=== PATIENT | female | born 1975 | race Caucasian/White ===

== ENCOUNTER 2017-03-30 14:59 | Emergency (ER) | payer OTHER ==
[2017-03-30 15:16] VITALS: RESP 18; TEMP 98
[2017-03-30] MEDS ORDERED: HYDROmorphone 1 MG/ML 1 ML SYRINGE IM STA (15:37)
--- NOTE | 2017-03-30 16:00 | ED ---
Lower Extremity Injury HPI - General Chief Complaint: Extremity Injury, Lower Stated Complaint: [facility]. 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 Patient reports that she has previously rolled her ankle in . Patient states that she's noticed significant swelling. Patient reports that she can move her toes. Patient reports that she has some numbness or tingling going down her toes. She states that she was able to bear weight over for a few minutes afterwards and did drive back to her work station. Patient reports that her boss then drove her for the to the emergency department. - Related Data Home Medications Medication Instructions Recorded Confirmed ALPRAZolam [Xanax] 0.5 mg PO DAILY PRN 03/30/17 03/30/17 DULoxetine HCL [Cymbalta] 30 mg PO DAILY 03/30/17 03/30/17 DULoxetine HCL [Cymbalta] 60 mg PO DAILY 03/30/17 03/30/17 Dextroamphetamine/Amphetamine 30 mg PO BID 03/30/17 03/30/17 [Adderall] Previous Rx's Medication Instructions Recorded Ibuprofen [Motrin] 800 mg PO BID #20 tab 03/30/17 Allergies Allergy/AdvReac Type Severity Reaction Status Date / Time meperidine [From Demerol] Allergy Rash/Hives Verified 03/30/17 16:09 silver sulfadiazine Allergy Rash/Hives Verified 03/30/17 16:09 [From Silvadene] Review of Systems ROS Statement: Those systems with pertinent positive or pertinent negative responses have been documented in the HPI. ROS Other: All systems not noted in ROS Statement are negative. Past Medical History Past Medical History: No Reported History History of Any Multi-Drug Resistant Organisms: None Reported Past Surgical History: Breast Surgery, Section, Hysterectomy Additional Past Surgical History / Comment(s): bunionectomys breast augmentation Past Psychological History: Depression Smoking Status: Never smoker Past Alcohol Use History: None Reported Past Drug Use History: None Reported General Exam - General Exam Comments Initial Comments: 41-year-old female, patient appears to be in significant discomfort. Limitations: no limitations General appearance: alert, in no apparent distress Head exam: Present: atraumatic, normocephalic, normal inspection Eye exam: Present: normal appearance, PERRL, EOMI. Absent: scleral icterus, conjunctival injection, periorbital swelling ENT exam: Present: normal exam, mucous membranes moist Neck exam: Present: normal inspection. Absent: tenderness, meningismus, lymphadenopathy Respiratory exam: Present: normal lung sounds bilaterally. Absent: respiratory distress, wheezes, rales, rhonchi, stridor Cardiovascular Exam: Present: regular rate, normal rhythm, normal heart sounds. Absent: systolic murmur, diastolic murmur, rubs, gallop, clicks GI/Abdominal exam: Present: soft, normal bowel sounds. Absent: distended, tenderness, guarding, rebound, rigid Extremities exam: Present: normal inspection, full ROM, normal capillary refill. Absent: tenderness, pedal edema, joint swelling, calf tenderness Right Lower Leg exam: Present: normal inspection, full ROM Ankle exam: Present: tenderness, ecchymosis. Absent: normal inspection, full ROM, abrasion, laceration, deformity, crepitus, dislocation Foot/Toe exam: Present: full ROM. Absent: normal inspection, tenderness, swelling, laceration, ecchymosis Neurovascular tendon exam: Present: no vascular compromise Gait: observed and limited by pain. negative: observed and normal Back exam: Present: normal inspection Neurological exam: Present: alert Psychiatric exam: Present: normal affect, normal mood Skin exam: Present: warm, dry, intact, normal color. Absent: rash Course Vital Signs 03/30/17 03/30/17 15:13 16:30 Temperature 98.0 F Pulse Rate 102 H 80 Respiratory 18 18 Rate Blood Pressure 144/90 141/89 O2 Sat by Pulse 98 98 Oximetry Procedures - Orthopedic Splinting/Casting Injury #1 Side: right Lower Extremity Injury Location: ankle Lower Extremity Immobilizer: stirrup splint Other Orthopedic Equipment: crutches Medical Decision Making - Medical Decision Making 41-year-old female chief complaint of right ankle pain and swelling after rolling it in a ditch while walking back to her truck. 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 Patient does have significant swelling over the lateral aspect of her ankle. Patient was given a pain injection. She is does appear to be in significant discomfort. Patient received x-rays. X-rays are negative for any acute fracture. Patient was placed in a stirrup splint her severe ankle sprain. Patient will also be written for crutches and instructed take anti- inflammatory medication. Patient agrees to treatment plan and will comply. Return parameters were discussed. - Radiology Data Radiology results: report reviewed X-ray of the right foot and ankle show no acute fracture or dislocation. Disposition Clinical Impression: Right ankle sprain Disposition: HOME SELF-CARE Condition: Good Instructions: Ankle Sprain (ED) Additional Instructions: Patient needs to rest, ice, elevate extremity. Patient needs to be nonweightbearing until orthopedic follow-up. Return to the emergency department if any alarming signs or symptoms occur. Patient should use crutches. Prescriptions: Ibuprofen [Motrin] 800 mg PO BID #20 tab Referrals: None,Stated [Primary Care Provider] - 1-2 days Jerad Martin MD [STAFF PHYSICIAN] - 1-2 days Time of Disposition: 16:11
--- NOTE | 2017-03-30 16:01 | XR ---
EXAMINATION TYPE: XR ankle complete RT, XR foot complete RT DATE OF EXAM: 03/30/2017 COMPARISON: NONE HISTORY: Pain TECHNIQUE: Frontal, lateral and oblique images of the right ankle are obtained. COMPARISON: None. FINDINGS: There is no acute fracture/dislocation evident. The joint spaces appear within normal cohen its. There is lateral soft tissue swelling. IMPRESSION: There is no acute fracture or dislocation seen. EXAMINATION TYPE: XR ankle complete RT, XR foot complete RT DATE OF EXAM: 03/30/2017 CLINICAL HISTORY: pain TECHNIQUE: Frontal, lateral and oblique images of the right foot are obtained. COMPARISON: None. FINDINGS: There is no acute fracture/dislocation evident. The joint spaces appear within normal cohen its. The overlying soft tissue appears unremarkable. Postoperative changes about the great toe. IMPRESSION: There is no acute fracture or dislocation. ICD 10 NO FRACTURE, INITIAL EVALUATION
[2017-03-30 16:46] VITALS: BP 141/89; PULSE 80
== END 2017-03-30 16:30 | disposition home or self-care (01) ==
LOC: EC 14:59
DX: S93.401A Sprain of unspecified ligament of right ankle, initial encounter (principal); F32.9 Major depressive disorder, single episode, unspecified; Z79.899 Other long term (current) drug therapy; Z88.1 Allergy status to other antibiotic agents; Z88.5 Allergy status to narcotic agent; X50.9XXA Other and unspecified overexertion or strenuous movements or postures, initial encounter; Y93.01 Activity, walking, marching and hiking; Y99.0 Civilian activity done for income or pay
CPT/HCPCS: 73610; 73630; 99284; 96372; J1170

== ENCOUNTER 2021-06-17 19:59 | Emergency (ER) | payer BC, OTHER ==
[2021-06-17 20:27] VITALS: RESP 18; TEMP 98.5
[2021-06-17] MEDS ORDERED: IBUPROFEN 800 MG TAB PO STA (21:44)
[2021-06-17] MEDS ORDERED: HYDROmorphone 1 MG/ML 1 ML SYRINGE IM STA (21:44)
--- NOTE | 2021-06-17 21:45 | ED ---
Back Pain HPI - General Chief Complaint: Back Pain/Injury Stated Complaint: back pain Time Seen by Provider: 06/17/21 21:09 Source: patient Limitations: no limitations - Related Data Home Medications Medication Instructions Recorded Confirmed ALPRAZolam [Xanax] 0.5 mg PO DAILY PRN 03/30/17 03/30/17 DULoxetine HCL [Cymbalta] 30 mg PO DAILY 03/30/17 03/30/17 DULoxetine HCL [Cymbalta] 60 mg PO DAILY 03/30/17 03/30/17 Dextroamphetamine/Amphetamine 30 mg PO BID 03/30/17 03/30/17 [Adderall] Previous Rx's Medication Instructions Recorded Ibuprofen [Motrin] 800 mg PO BID #20 tab 03/30/17 Allergies Allergy/AdvReac Type Severity Reaction Status Date / Time meperidine [From Demerol] Allergy Rash/Hives Verified 06/17/21 20:27 silver sulfadiazine Allergy Rash/Hives Verified 06/17/21 20:27 [From Silvadene] Review of Systems ROS Statement: Those systems with pertinent positive or pertinent negative responses have been documented in the HPI. ROS Other: All systems not noted in ROS Statement are negative. Past Medical History Past Medical History: No Reported History History of Any Multi-Drug Resistant Organisms: None Reported Past Surgical History: Breast Surgery, Section, Hysterectomy Additional Past Surgical History / Comment(s): bunionectomys breast augmentation Past Psychological History: Anxiety, Depression Smoking Status: Never smoker Past Alcohol Use History: None Reported Past Drug Use History: None Reported General Exam Limitations: no limitations Course Vital Signs 06/17/21 20:21 Temperature 98.5 F Pulse Rate 80 Respiratory 18 Rate Blood Pressure 148/99 O2 Sat by Pulse 99 Oximetry Disposition Clinical Impression: Thoracic back pain Disposition: HOME SELF-CARE Condition: Good Instructions (If sedation given, give patient instructions): Back Pain (ED) Is patient prescribed a controlled substance at d/c from ED?: No Referrals: None,Stated [Primary Care Provider] - 1-2 days
--- NOTE | 2021-06-17 22:13 | XR ---
EXAMINATION TYPE: XR chest 2V DATE OF EXAM: 06/17/2021 COMPARISON: NONE HISTORY: Pain TECHNIQUE: 2 views FINDINGS: Heart and mediastinum are normal. Lungs are clear. Diaphragm is normal. Bony thorax is inta ct. IMPRESSION: Normal chest.
[2021-06-17] MEDS ORDERED: ACET/COD 300 MG/30 MG STARTER PACK 6 TAB BTL PO STA (22:33)
[2021-06-17] MEDS ORDERED: IBUPROFEN 600 MG STARTER PACK 4 TAB BTL PO STA (22:33)
[2021-06-17 23:04] VITALS: BP 142/89; PULSE 82
== END 2021-06-17 23:03 | disposition home or self-care (01) ==
LOC: EC 19:59
DX: M54.6 Pain in thoracic spine (principal); F32.9 Major depressive disorder, single episode, unspecified; F41.9 Anxiety disorder, unspecified; Z79.1 Long term (current) use of non-steroidal anti-inflammatories (NSAID); Z79.899 Other long term (current) drug therapy
CPT/HCPCS: 71046; 99283; 96372; J1170